=== PATIENT | female | born 1960 | race Caucasian/White ===

== ENCOUNTER → 2021-12-01 | Outpatient (CLI) | payer MEDICAID ==
--- NOTE | 2021-12-02 12:26 | MM ---
Reason for exam: screening (asymptomatic). Last mammogram was performed 1 year and 6 months ago. History: Patient is postmenopausal. Physical Findings: A clinical breast exam by your physician is recommended on an annual basis and results should be correlated with mammographic findings. MG Screening Mammo w CAD Bilateral CC and MLO view(s) were taken. Prior study comparison: June 04, 2020, mammogram, performed at [place]. June 04, 2019, mammogram, performed at [place]. The breast tissue is almost entirely fat. Finding: There are indeterminate grouped/clustered calcifications in the middle, central position of the right breast. Previous mammotome biopsy in the right breast. ASSESSMENT: Incomplete: need additional imaging evaluation, BI-RAD 0 RECOMMENDATION: Special view mammogram of the right breast. [facility] will attempt to contact patient to return for supplemental views.
== END | disposition home or self-care (01) ==
LOC: RADMAMWWP 16:37
PROVIDERS: ATTEND Family Medicine
DX: Z12.31 Encounter for screening mammogram for malignant neoplasm of breast (principal); Z78.0 Asymptomatic menopausal state
CPT/HCPCS: 77067

== ENCOUNTER → 2022-01-13 | Day surgery (SDC) | payer MEDICAID ==
[2022-01-13 07:27] VITALS: RESP 16
--- NOTE | 2022-01-13 08:41 | P.PCN ---
Date of Procedure: 01/13/22 Preoperative Diagnosis: Microcalcifications of concern right breast Postoperative Diagnosis: Same Procedure(s) Performed: Stereotactic core biopsy right breast Anesthesia: local Surgeon: Sadaf He Pathology: other (Breast tissue radiograph right breast shows microcalcifications of concern) Condition: stable Disposition: same day Indications for Procedure: Microcalcifications of concern right breast Operative Findings: Radiograph of specimen reveals microcalcifications of concern right breast Description of Procedure: The patient is a 61-year-old white female who on screening mammogram was noted to have microcalcifications of concern in her right breast. Additional views confirmed this and she was recommended to undergo a stereotactic core biopsy. Alternatives such as watchful waiting or resection in the operating room were noted but not recommended. Risks of the procedure were discussed with the patient. Risks include but are not limited to bleeding, infection, reaction to the anesthetic. If it was felt to be discordant pathologically than further tissue may be needed. The patient was taken to the stereotactic core biopsy room. She was positioned prone on the lo-rad table. A talent specialist film was obtained. The area of concern was identified. The area was targeted. The breast was prepped using Betadine. 20 mL of 1% lidocaine were used to anesthetize the area of concern. A 9-gauge vacuum-assisted core rotating biopsy needle was driven to the correct coordinates. A prefire film was obtained. The needle was noted to be in the correct location. The needle was fired. Post fire film was obtained. The needle was noted to be in the correct location. 13 core biopsy specimens were obtained. Radiograph of the specimen revealed the calcifications of concern to be present. A secure marked Top-Hat clip was placed. Radiograph revealed the clip to be in the correct location in the stereotactic core biopsy room. A 2-D view of this will be obtained postprocedure. The patient tolerated the procedure in stable condition. It is felt that the microcalcifications of concern have been adequately sampled. The specimen was sent to pathology. The patient will follow-up with Dr. Mancia in 1 week.
[2022-01-13 08:48] VITALS: BP 128/76; PULSE 52; TEMP 98.1
== END ==
LOC: RADMAMWWP 06:52
PROVIDERS: ATTEND Surgery
DX: D05.11 Intraductal carcinoma in situ of right breast (principal)
CPT/HCPCS: 88305; 88342; 88341; 19081; A4648; J2001

== ENCOUNTER → 2022-01-13 | Outpatient (CLI) | payer MEDICAID ==
[2022-01-13 07:39] VITALS: BP 119/80; PULSE 54; RESP 16; TEMP 98
--- NOTE | 2022-01-13 08:01 | P.GSHP ---
History of Present Illness H&P Date: 01/13/22 Chief Complaint: abnormal right breast mammogram Jason is a 61 year old female who [facility] right breast were requested. These were preformed on 12-20-21. She was noted to have microcalcification of concern in the inferior mid portion of the breast. She is seen in consultation for Dr. Ziegler. Any lumps masses or nodules of concern in either breast. She is not complaining of any nipple discharge or skin changes. She is not complaining of any pain in her breast. She has not had any recent trauma or infection in the breast. She had a stero biopsy of the right breast about 2004 which was benign. She has had no other procedures on her breast. Caffeine: One cup per day Nicotine: Negative Chocolate: Occasional Hormones: BCP: in her 20's for 8 years Family history: mother: lung cancer smoker father: lung cancer smoker Hormonal History: menarche: 14 , age at : 29, breat fed: no menopause: 52 BCP: 8 years Surgical history: appy left tube removed not ovary Medcial History: H Pylori: 2020 hypothyroid Social History: nicotine: none alcohol: none drugs: Marijuana daily secondary to PTSD, and arthritis - Constitutional Constitutional: Denies chills, Denies fever - EENT Eyes: denies blurred vision, denies pain Ears: deny: decreased hearing, tinnitus Ears, nose, mouth and throat: Denies headache, Denies sore throat - Breasts Breasts: bilateral: as per HPI - Cardiovascular Cardiovascular: Denies chest pain, Denies shortness of breath - Respiratory Respiratory: Denies cough, Denies 7 - Gastrointestinal Comment: H Pylori/ abdominal pain; nausea vomiting Gastrointestinal: Denies abdominal pain, Denies diarrhea, Denies nausea, Denies vomiting - Genitourinary (Female) Genitourinary: Denies dysuria, Denies hematuria - Menstruation Menstruation: Reports postmenopausal - Musculoskeletal Comment: arthritis - Integumentary Integumentary: Denies pruritus, Denies rash - Neurological Neurological: Denies numbness, Denies weakness - Psychiatric Comment: post traumatic stress disorder Psychiatric: Reports anxiety - Endocrine Endocrine: Denies fatigue, Denies weight change - Hematologic/Lymphatic Comment: none Past Medical History History of Any Multi-Drug Resistant Organisms: None Reported Smoking Status: Never smoker Medications and Allergies Home Medications Medication Instructions Recorded Confirmed Type Levothyroxine Sodium 112 mcg PO DAILY 01/07/22 01/13/22 History Ondansetron [Zofran] 4 mg PO Q12HR PRN 01/07/22 01/13/22 History Allergies Allergy/AdvReac Type Severity Reaction Status Date / Time tetanus and diphtheria AdvReac Swelling Verified 01/13/22 07:35 toxoids Surgical - Exam Vital Signs Temp Pulse Resp BP 98.0 F 54 L 16 119/80 01/13/22 07:35 01/13/22 07:35 01/13/22 07:35 01/13/22 07:35 BMI 30.5 - General no distress - Eyes normal ocular movement - ENT no hearing loss - Neck trachea midline - Respiratory normal respiratory effort - Cardiovascular Heart Sounds: normal: S1, S2 - Abdomen Abdomen: soft, non tender, no guarding, no rigid, no rebound - Integumentary normal turgor - Neurologic no disoriented, no combative - Musculoskeletal normal gait - Psychiatric oriented to time, oriented to person, oriented to place, speech is normal, memory intact Breast Exam: BRA: 38DD Section: Bilateral grade 3 ptosis Palpation: Right breast: Multi-positional exam fibrocystic changes no dominant masses or nodules of concern Right axilla: No adenopathy of concern Left breast: Multi-positional exam fibrocystic changes no dominant masses or nodules of concern Left axilla: No adenopathy of concern Results Mammogram reviewed with Dr. Cabrera from radiology; microcalcifications of concern right breast Assessment and Plan Assessment: Impression: Microcalcifications of concern right breast mid inferior portion Fibrocystic breast changes Plan: Stereotactic core biopsy right breast Risk and benefits of the procedure discussed with the patient. Risks include but are not limited to bleeding, infection, reaction to the anesthetic. If the biopsy is not concordant then further tissue may be necessary to be removed. The patient understands and wishes to proceed. Cc: Dr. Ziegler
== END ==
LOC: WWCWWP 06:49
PROVIDERS: ATTEND Surgery
DX: N60.11 Diffuse cystic mastopathy of right breast (principal); N60.12 Diffuse cystic mastopathy of left breast; R92.0 Mammographic microcalcification found on diagnostic imaging of breast; E03.9 Hypothyroidism, unspecified; M19.90 Unspecified osteoarthritis, unspecified site; F43.10 Post-traumatic stress disorder, unspecified; F41.9 Anxiety disorder, unspecified; Z88.7 Allergy status to serum and vaccine; Z79.890 Hormone replacement therapy

== ENCOUNTER → 2022-01-20 | Outpatient (CLI) | payer MEDICAID ==
[2022-01-20 11:48] VITALS: BP 125/84; PULSE 62; RESP 17; TEMP 98.7
--- NOTE | 2022-01-20 12:35 | P.PN ---
Subjective Progress Note Date: 01/20/22 Principal diagnosis: Ductal carcinoma in situ Jason is a 61-year-old white female status post her tactic core biopsy on . Pathology revealed ductal carcinoma in situ. There was medial migration of the clip approximately 2 cm. The patient tolerated the procedure without difficulty. The lesion is ER/HI positive grade 1. Objective - Vital Signs Vital signs: Vital Signs Temp 98.7 F 01/20/22 11:44 Pulse 62 01/20/22 11:44 Resp 17 01/20/22 11:44 BP 125/84 01/20/22 11:44 Pulse Ox 95 01/20/22 11:44 FiO2 Intake & Output 01/19/22 01/20/22 01/20/22 18:59 06:59 18:59 Weight 88.451 kg - Constitutional General appearance: Present: cooperative - EENT Eyes: Present: EOMI ENT: Present: hearing grossly normal - Respiratory Respiratory: bilateral: CTA - Cardiovascular Heart sounds: normal: S1, S2 - Integumentary Integumentary Comment(s): Biopsy site clean and dry Integumentary: Present: normal turgor - Musculoskeletal Musculoskeletal: Present: gait normal - Psychiatric Psychiatric: Present: A&O x's 3, appropriate affect, intact judgment & insight Assessment and Plan Assessment: Impression: Right breast core biopsy DCIS ER/HI positive less than 1 cm in size Plan: Presentation of case at tumor board Patient is not interested in any genetic testing Probable needle localization and lumpectomy/at this time I do not think she needs sentinel node biopsy to be performed I have had a long discussion with the patient in conjunction with Flakita Marques regarding her pathology results. The lesion is grade 1 DCIS ER/HI positive. Treatment options have been discussed with the patient. Treatment options range from mastectomy to lumpectomy plus or minus radiation. The patient at this time is not interested in a mastectomy. Risk of lumpectomy include but are not limited to bleeding, infection, reaction to the anesthetic. They have discussed the risk of positive margins, which could be the patient would need reexcision. Additionally if the lesion were found to be invasive she could need a sentinel node biopsy. The patient will be recommended to be evaluated by radiation oncology and medical oncology.
== END ==
LOC: WWCWWP 11:37
PROVIDERS: ATTEND Surgery
DX: D05.11 Intraductal carcinoma in situ of right breast (principal); Z17.0 Estrogen receptor positive status [ER+]; Z88.7 Allergy status to serum and vaccine

== ENCOUNTER 2022-02-09 08:41 | Day surgery (SDC) | payer MEDICAID ==
--- NOTE | 2022-01-28 13:25 | P.PN ---
Subjective Progress Note Date: 01/28/22 Principal diagnosis: Ductal carcinoma in situ right breast abnormal right breast mammogram Jason is a 61 year old female who [facility] right breast were requested. These were preformed on 12-20-21. She was noted to have microcalcification of concern in the inferior mid portion of the breast. She is seen in consultation for Dr. Ziegler. Any lumps masses or nodules of concern in either breast. She is not complaining of any nipple discharge or skin changes. She is not complaining of any pain in her breast. She has not had any recent trauma or infection in the breast. She had a stero biopsy of the right breast about 2004 which was benign. She has had no other procedures on her breast. The patient on underwent a stereotactic core biopsy of the area of concern in the right breast. Pathology revealed ductal carcinoma in situ. There was medial migration of the clip approximately 2 cm. The patient tolerated the procedure without difficulty. The lesion is ER/WV positive and gr neo 1. Caffeine: One cup per day Nicotine: Negative Chocolate: Occasional Hormones: BCP: in her 20's for 8 years Family history: mother: lung cancer smoker father: lung cancer smoker Hormonal History: menarche: 14 , age at : 29, breat fed: no menopause: 52 BCP: 8 years Surgical history: appy left tube removed not ovary Medcial History: H Pylori: 2020 hypothyroid Social History: nicotine: none alcohol: none drugs: Marijuana daily secondary to PTSD, and arthritis - Constitutional Constitutional: Denies chills, Denies fever - EENT Eyes: denies blurred vision, denies pain Ears: deny: decreased hearing, tinnitus Ears, nose, mouth and throat: Denies headache, Denies sore throat - Breasts Breasts: bilateral: as per HPI - Cardiovascular Cardiovascular: Denies chest pain, Denies shortness of breath - Respiratory Respiratory: Denies cough - Gastrointestinal Comment: H Pylori/ abdominal pain; nausea vomiting Gastrointestinal: Denies abdominal pain, Denies diarrhea, Denies nausea, Denies vomiting - Genitourinary (Female) Genitourinary: Denies dysuria, Denies hematuria - Menstruation Menstruation: Reports postmenopausal - Musculoskeletal Comment: arthritis - Integumentary Integumentary: Denies pruritus, Denies rash - Neurological Neurological: Denies numbness, Denies weakness - Psychiatric Comment: post traumatic stress disorder Psychiatric: Reports anxiety - Endocrine Endocrine: Denies fatigue, Denies weight change - Hematologic/Lymphatic Comment: none Objective - Constitutional General appearance: Present: cooperative - EENT Eyes: Present: EOMI ENT: Present: hearing grossly normal - Respiratory Respiratory: bilateral: CTA - Cardiovascular Heart sounds: normal: S1, S2 - Integumentary Integumentary: Present: normal turgor - Musculoskeletal Musculoskeletal: Present: gait normal - Psychiatric Psychiatric: Present: A&O x's 3, appropriate affect, intact judgment & insight - Additional findings Additional findings: Breast Exam: BRA: 38DD Section: Bilateral grade 3 ptosis Palpation: Right breast: Multi-positional exam fibrocystic changes no dominant masses or nodules of concern; biopsy site clean and dry no evidence of any infection or hematoma Right axilla: No adenopathy of concern Left breast: Multi-positional exam fibrocystic changes no dominant masses or nodules of concern Left axilla: No adenopathy of concern Results Mammogram reviewed with Dr. Cabrera from radiology; microcalcifications of concern right breast Assessment and Plan Assessment: Results Mammogram reviewed with Dr. Cabrera from radiology; microcalcifications of concern right breast stereo biopsy performed clip appears to have migrated approximately 2 cm Assessment and Plan Assessment: Impression: Microcalcifications of concern right breast mid inferior portion; biopsy positive for ductal carcinoma in situ Plan: Presentation of case at tumor board Patient is not interested in any genetic testing Needle localization right breast lumpectomy possible optical plastic tissue transfer, no sentinel node biopsy Long discussion with the patient in conjunction with Flakita Marques regarding her pathology results. The lesion is grade 1 DCIS ER/WV positive. Treatment options have been discussed with the patient. Treatment options range from mastectomy plus or minus reconstruction to lumpectomy plus or minus radiation. The patient at this time is not interested in a mastectomy. Risks of lumpectomy include but are not limited to bleeding, infection, reaction to the anesthetic. We have discussed the risk of positive margins which could necessitate further excision. Additionally of the lesion were to be found invasive its possible that a sentinel node biopsy could be recommended. The patient is understanding these things and wishes to proceed. She is recommended to be evaluated by radiation and medical oncology. Risk and benefits of the procedure discussed with the patient. Risks include but are not limited to bleeding, infection, reaction to the anesthetic. If the biopsy is not concordant then further tissue may be necessary to be removed. The patient understands and wishes to proceed. Cc: Dr. Ziegler Additional CC's: Tiffanie Ziegler
[~2022-02-09 08:41] MED LIST: ALPRAZolam 0.5 MG TAB PO PRN; DEXAMETHASONE SOD PHOSPHATE 4 MG/ML 1 ML VIAL IV ONE; HEPARIN SODIUM,PORCINE/PF 5,000 UNIT/0.5 ML SYRINGE SQ PRN; HYDROmorphone 0.5 MG/0.5 ML SYRINGE IVP PRN; LACTATED RINGERS 1,000 ML IV SCH; ONDANSETRON 4 MG/2 ML VIAL IVP ONE; Pre Op ABX Message 1 EACH MISC MISCELLANE ONE
[2022-02-09 10:33] VITALS: RESP 16
[2022-02-09] MEDS ORDERED: LIDOCAINE 1% INJ 10MG/ML (20 ML MDV) SQ ONE (10:46)
--- NOTE | 2022-02-09 12:40 | P.NAPBC ---
NAPBC Queries - NAPBC Queries Was patient's case review presented at [facility] tumor board? If no, comment.: Yes Was patient's pathology reviewed at [facility]? If no, comment.: Yes Was breast conservation surgery offered? If no, comment.: Yes Was sentinel node biopsy offered? If no, comment.: No Was diagnosis confirmed by percutaneous core biopsy? If no, comment.: Yes Is patient mastectomy patient?: No Was a preop referral to reconstructive surgeon offered?: No Clinical Stage: stage 0
[2022-02-09] MEDS ORDERED: ePHEDrine 50 MG/ML 1 ML VIAL ONE (13:11)
[2022-02-09] MEDS ORDERED: ceFAZolin 1,000 MG VIAL ONE (13:11)
[2022-02-09] MEDS ORDERED: SUCCINYLCHOLINE CHLORIDE VIAL 200 MG/10 ML VIAL IV ONE (13:11)
[2022-02-09] MEDS ORDERED: PROPOFOL 10 MG/ML 20 ML VIAL IV ONE (13:11)
[2022-02-09] MEDS ORDERED: fentaNYL (PF) 50 MCG/ML 2 ML AMP ONE (13:11)
[2022-02-09] MEDS ORDERED: LIDOCAINE 2% INJ 20 MG/ML (2 ML VIAL) ONE (13:11)
[2022-02-09] MEDS ORDERED: MIDAZOLAM 2 MG/2 ML VIAL ONE (13:11)
[2022-02-09] MEDS ORDERED: LIDOCAINE 1% INJ 10MG/ML (30 ML VIAL-PF) SQ ONE (13:16)
--- NOTE | 2022-02-09 14:13 | P.OP ---
Date of Procedure: 02/09/22 Preoperative Diagnosis: Ductal carcinoma in situ right breast Postoperative Diagnosis: Same Procedure(s) Performed: needle localization excisional lumpectomy right breast Anesthesia: BRITTANYA Surgeon: Sadaf He Estimated Blood Loss (ml): 5 IV fluids (ml): 500 Pathology: other (breast tissue) Condition: stable Disposition: same day Indications for Procedure: DCIS right breast Operative Findings: Fibrofatty breast tissue Description of Procedure: Jason is a 61-year-old white female who was diagnosed with ductal carcinoma in situ of the right breast and a stereotactic core biopsy. Following needle localization of area of concern in the right breast she was brought to the operative suite. Following induction of anesthesia the right breast was prepped and draped in a sterile fashion. An incision was made and carried down to the hook of the needle. Surrounding tissue was excised. Specimen was painted for orientation. Radiograph of the specimen revealed the area of concern had been removed. Should be noted that the clip had migrated slightly from the area of the needle tip had gone to the area of prior biopsy. The wound was evaluated. Titanium clips were placed after assured that hemostasis was attained. The deep tissues were closed using 3-0 Vicryl suture. The subcutaneous tissues closed using 3-0 Vicryl suture. The skin was closed using 4-0 Monocryl. Steri-Strips were applied. The patient tolerated procedure in stable condition. All instrument and sponge counts were correct at the end of the case.
--- NOTE | 2022-02-09 14:15 | P.DS ---
Providers Attending physician: Sadaf He Primary care physician: Tiffanie Ziegler MD Plan - Discharge Summary Discharge Rx Participant: No New Discharge Prescriptions: No Action Ondansetron [Zofran] 4 mg PO Q12HR PRN PRN Reason: Mild Nausea And/Or Anxiety Levothyroxine Sodium 112 mcg PO QAM Discharge Medication List Levothyroxine Sodium 112 mcg PO QAM 01/07/22 [History] Ondansetron [Zofran] 4 mg PO Q12HR PRN 01/07/22 [History] Follow up Appointment(s)/Referral(s): Sadaf He MD [STAFF PHYSICIAN] - 1 Week Activity/Diet/Wound Care/Special Instructions: wear bra at all times may shower after [address] if taking narcotic pain medication, or for 24 hours from discharge from the hospital Discharge Disposition: HOME SELF-CARE
[2022-02-09 14:42] VITALS: TEMP 97.4
[2022-02-09] MEDS ORDERED: ONDANSETRON 4 MG/2 ML VIAL ONE (15:51)
[2022-02-09] MEDS ORDERED: KETOROLAC 15 MG/ML 1 ML VIAL ONE (15:51)
[2022-02-09] MEDS ORDERED: ONDANSETRON 4 MG/2 ML VIAL IVP ONE (15:55)
[2022-02-09] MEDS ORDERED: KETOROLAC 15 MG/ML 1 ML VIAL IVP ONE (15:55)
[2022-02-09] MEDS ORDERED: HYDROcodone/APAP 5-325MG 1 EACH TAB PO ONE (16:06)
[2022-02-09] MEDS ORDERED: HYDROcodone/APAP 5-325MG 1 EACH TAB ONE (16:07)
[2022-02-09 16:22] VITALS: BP 138/82; PULSE 52
--- NOTE | 2022-02-11 13:31 | P.PN ---
Progress Note - Text Progress Note Date: 02/11/22 Patient has called requesting additional [place]. I have called her back without any answer. Have requested that she return phone call to us. If she has significant questions or pain she go to the emergency room.
== END 2022-02-09 16:45 | disposition home or self-care (01) ==
LOC: OR 08:41
PROVIDERS: ATTEND Surgery
DX: D05.11 Intraductal carcinoma in situ of right breast (principal); Z17.0 Estrogen receptor positive status [ER+]; Z80.1 Family history of malignant neoplasm of trachea, bronchus and lung; E03.9 Hypothyroidism, unspecified; F43.10 Post-traumatic stress disorder, unspecified; M19.90 Unspecified osteoarthritis, unspecified site; F41.9 Anxiety disorder, unspecified; N95.9 Unspecified menopausal and perimenopausal disorder; K21.9 Gastro-esophageal reflux disease without esophagitis; Z91.041 Radiographic dye allergy status; Z79.890 Hormone replacement therapy
CPT/HCPCS: 88307; 76098; 19281; C1819; J2250; J0330; J1100; J2405; J0690; J2001 ×3; J3010; J1885; J2704; J1170

== ENCOUNTER → 2022-02-18 | Outpatient (CLI) | payer MEDICAID ==
[2022-02-18 15:42] VITALS: BP 148/85; PULSE 55; RESP 17; TEMP 98.9
--- NOTE | 2022-02-18 16:05 | P.PN ---
Progress Note - Text Progress Note Date: 02/18/22 Jason is a 61 year old white female status post lumpectomy on 02-09-22. Her pathology was DCIS negative margins. Size 1mm. Physical examination: Lungs: Wheezing right lung base Heart: Regular rate and rhythm Incision: Clean and dry Impression: DCIS completely excised Plan: Follow with medical oncology following radiation oncology follow here in 4 months Follow sooner any questions or concerns CC: Dr. Ziegler
== END ==
LOC: WWCWWP 15:12
PROVIDERS: ATTEND Surgery
DX: Z48.817 Encounter for surgical aftercare following surgery on the skin and subcutaneous tissue (principal); D05.11 Intraductal carcinoma in situ of right breast; Z88.7 Allergy status to serum and vaccine

== ENCOUNTER → 2022-03-16 | Outpatient (CLI) | payer MEDICAID ==
--- NOTE | 2022-03-16 18:58 | BD ---
EXAMINATION TYPE: Axial Bone Density DATE OF EXAM: 03/16/2022 COMPARISON: NONE CLINICAL HISTORY: 61 years year old Female. ICD-10 CODE: D05.10 INTRADUCTAL CARCINOMA INSUIT OF UNSP ECIFIED Height: 64.5 IN Weight: 204 LBS RISK FACTORS HISTORY OF: Active: YES Diet low in dairy products/other sources of calcium: YES Postmenopausal woman: AGE 52 MEDICATIONS: Thyroid Medications: YES Which medication: Levothyroxine How Lon + YEARS Additional Medications: TAMOXIFEN, CALCIUM, VIT D, LEVOTHYROXINE, ZOFRAN, EXAM MEASUREMENTS: Bone mineral densitometry was performed using the [employer] System. Bone mineral density as measured about the Lumbar spine is: ----- L1-L4(G/cm2): 1.177 T Score Values are as follows: ----- L1: -0.2 ----- L2: -0.3 ----- L3: -0.2 ----- L4: 0.5 ----- L1-L4: 0.0 Bone mineral density BASELINE Bone mineral density about the R hip (g/cm2): 0.699 Bone mineral density about the L hip (g/cm2): 0.786 T Score values are as follows: -----R Neck: -2.4 -----L Neck: -1.8 -----R Total: -2.4 -----L Total: -1.9 Bone mineral density BASELINE FRAX%s: The graph provided illustrates a 10.5 chance for a major osteoporotic fx and a 1.8 chance for the hips probability for fx in 10 years time. IMPRESSION: Osteopenia (T Score between -2.5 and -1). There is slightly increased risk of fracture and the patient may be considered for treatment. Re-Screen 2-5 years. NOTE: T-SCORE=SD OF THE YOUNG ADULT MEAN.
== END | disposition home or self-care (01) ==
LOC: RADBDWWP 07:52
PROVIDERS: ATTEND Internal Medicine Hematology & Oncology
DX: D05.10 Intraductal carcinoma in situ of unspecified breast (principal); M85.89 Other specified disorders of bone density and structure, multiple sites
CPT/HCPCS: 77080

== ENCOUNTER → 2022-07-21 | Outpatient (CLI) | payer MEDICAID ==
--- NOTE | 2022-07-21 09:38 | US ---
EXAMINATION TYPE: US st tissue neck DATE OF EXAM: 07/21/2022 COMPARISON: None CLINICAL HISTORY: 62-year-old female R59.0 LOCALIZED ENLARGED LYMPH NODES. Lump right side neck. Technique: Targeted ultrasound examination along the right side of the neck corresponding to the palp able site. FINDINGS: Sonography notes: Scanned area of concern; no abnormalities seen. IMPRESSION: No discrete sonographic abnormality along the right side of the neck corresponding to the palpable si te. If any enlarging palpable area or suspicious clinical features develop, the area can be rescanned or further CT assessment can be considered
== END | disposition home or self-care (01) ==
LOC: RADUSWWP 08:34
PROVIDERS: ATTEND Family Medicine
DX: R59.0 Localized enlarged lymph nodes (principal)
CPT/HCPCS: 76536

== ENCOUNTER → 2022-08-04 | Outpatient (CLI) | payer BC ==
--- NOTE | 2022-08-08 15:20 | MM ---
Reason for Exam: Follow-up at short interval from prior study. Last screening mammogram was performed 8 month(s) ago. Patient History: Menarche at age 14. First Full-Term at age 29. Postmenopausal. Breast cancer, right, age 61. Breast cancer, right, age 61. 02/09/2022, Lumpectomy on the Right side. 02/09/2022, Malignant MG pre op needle loc RT on the right side. 01/13/2022, Malignant MG stereo VAD BX RT on the right side. Prior Study Comparison: 06/04/2020 Screening Mammogram, [place]. 12/01/2021 Bilateral Screening Mammogram, [facility]. 12/20/2021 Right MG work up mamm w CAD RT, [facility]. Tissue Density: Right: There are scattered fibroglandular densities. Findings: Analyzed By CAD. Interval postsurgical changes right breast. Microclip lower quadrant from prior biopsy. Chronic nodularity laterally at a middle depth. Otherwise, no significant change. Patient due for annual exam in 4 months. Overall Assessment: Probably benign, BI-RAD 3 Management: Diagnostic Mammogram of both breasts in 4 months. 1. Patient should continue monthly self breast exams. 2. A clinical breast exam by your physician is recommended on an annual basis. 3. This exam should not preclude additional follow-up of suspicious palpable abnormalities. Results were given to the patient verbally at the time of exam. Electronically signed and approved by: Kinza Cabrera M.D. Radiologist
== END | disposition home or self-care (01) ==
LOC: RADMAMWWP 09:34
PROVIDERS: ATTEND Internal Medicine
DX: C50.911 Malignant neoplasm of unspecified site of right female breast (principal); Z78.0 Asymptomatic menopausal state
CPT/HCPCS: 77065

== ENCOUNTER → 2022-11-04 | Outpatient (CLI) | payer BC ==
[2022-11-04 11:38] LABS: Chol/HDL Ratio 3.98 Ratio; LDL Cholesterol,Calculated 114.7 mg/dL (0.0-131.0); Potassium 4.5 mmol/L (3.5-5.5); VLDL Calculation 18.64 mg/dL (5.00-40.00)
== END | disposition home or self-care (01) ==
LOC: LABWHC1 07:11
PROVIDERS: ATTEND Family Medicine
DX: Z00.00 Encounter for general adult medical examination without abnormal findings (principal); E87.5 Hyperkalemia; E02 Subclinical iodine-deficiency hypothyroidism; R73.9 Hyperglycemia, unspecified
CPT/HCPCS: 36415; 80061; 83036; 84132; 84439; 84443

== ENCOUNTER → 2022-12-07 | Outpatient (CLI) | payer BC ==
--- NOTE | 2022-12-16 09:10 | MM ---
Reason for Exam: Follow-up at short interval from prior study. Last screening mammogram was performed 12 month(s) ago. Patient History: Menarche at age 14. First Full-Term at age 29. Postmenopausal. Breast cancer, right, age 61. Breast cancer, right, age 61. 02/09/2022, Lumpectomy on the Right side. 02/09/2022, Malignant MG pre op needle loc RT on the right side. 01/13/2022, Malignant MG stereo VAD BX RT on the right side. Prior Study Comparison: 06/04/2019 Bilateral Screening Mammogram, Unknown. 06/04/2020 Screening Mammogram, [place]. 12/01/2021 Bilateral Screening Mammogram, [facility]. 12/20/2021 Right MG work up mamm w CAD RT, [facility]. 08/04/2022 Right MG diagnostic mammo RT w CAD, [facility]. Tissue Density: The breast tissue is almost entirely fat. Findings: Analyzed By CAD. Decreased appearance of postsurgical changes within the right breast. Microclips lower quadrant from prior biopsy. Chronic nodularity within the right middle breast. No new suspicious mass or group of calcifications within either breast. Overall Assessment: Benign, BI-RAD 2 Management: Diagnostic Mammogram of both breasts in 1 year. A clinical breast exam by your physician is recommended on an annual basis and results should be correlated with mammographic findings. This exam should not preclude additional follow-up of suspicious palpable abnormalities. Results were given to the patient verbally at the time of exam. Electronically signed and approved by: Kyrie Rubio D.O.
== END | disposition home or self-care (01) ==
LOC: RADMAMWWP 08:47
PROVIDERS: ATTEND Family Medicine
DX: C50.111 Malignant neoplasm of central portion of right female breast (principal); Z78.0 Asymptomatic menopausal state
CPT/HCPCS: 77062; 77066

== ENCOUNTER → 2023-12-15 | Outpatient (CLI) | payer BC ==
--- NOTE | 2023-12-15 09:36 | MM ---
Reason for Exam: Follow-up at short interval from prior study. Last screening mammogram was performed 12 month(s) ago. Patient History: Menarche at age 14. First Full-Term at age 29. Postmenopausal. Breast cancer, right, age 61. Breast cancer, right, age 61. 02/09/2022, Lumpectomy on the Right side. 02/09/2022, Malignant MG pre op needle loc RT on the right side. 01/13/2022, Malignant MG stereo VAD BX RT on the right side. Prior Study Comparison: 12/20/2021 Right MG work up mamm w CAD RT, [facility]. 08/04/2022 Right MG diagnostic mammo RT w CAD, [facility]. 12/07/2022 Bilateral MG 3D diag mammo w/cad ANKIT, [facility]. Tissue Density: The breasts are almost entirely fatty. Findings: Analyzed By CAD. 2 small focal asymmetries in the right breast. These seem to have been present when comparing against areas prior studies. Short interval surveillance follow-up. Microclip medial right breast from prior biopsy. Post surgical change right breast noted. Short interval follow-up to assess for any evolving post treatment change. Otherwise, no significant change. Overall Assessment: Probably benign, BI-RAD 3 Management: Diagnostic Mammogram of the right breast in 6 months. . Results were given to the patient verbally at the time of exam. Patient should continue monthly self-breast exams. A clinical breast exam by your physician is recommended on an annual basis. This exam should not preclude additional follow-up of suspicious palpable abnormalities. Electronically signed and approved by: Kinza Cabrera M.D. Radiologist
== END | disposition home or self-care (01) ==
LOC: RADMAMWWP 08:58
PROVIDERS: ATTEND Family Medicine
DX: D05.11 Intraductal carcinoma in situ of right breast (principal); Z78.0 Asymptomatic menopausal state
CPT/HCPCS: 77066

== ENCOUNTER → 2024-06-18 | Outpatient (CLI) | payer BC ==
--- NOTE | 2024-06-18 09:25 | MM ---
Reason for Exam: Follow-up at short interval from prior study. Last screening mammogram was performed 6 month(s) ago. Patient History: Menarche at age 14. First Full-Term at age 29. Postmenopausal. Breast cancer, right, age 61. Breast cancer, right, age 61. 02/09/2022, Lumpectomy on the Right side. 02/09/2022, Malignant MG pre op needle loc RT on the right side. 01/13/2022, Malignant MG stereo VAD BX RT on the right side. Prior Study Comparison: 08/04/2022 Right MG diagnostic mammo RT w CAD, [facility]. 12/07/2022 Bilateral MG 3D diag mammo w/cad ANKIT, [facility]. 12/15/2023 Bilateral MG diagnostic mammo w CAD ANKIT, [facility]. Tissue Density: Right: There are scattered areas of fibroglandular density. Findings: Analyzed By CAD. Tiny areas of nodular density remain stable dating back to 2019. No new masses seen. No suspicious microcalcifications. Lumpectomy changes identified. Overall Assessment: Benign, BI-RAD 2 Management: Diagnostic Mammogram of both breasts in 6 months. . Results were given to the patient verbally at the time of exam. Patient should continue monthly self-breast exams. A clinical breast exam by your physician is recommended on an annual basis. This exam should not preclude additional follow-up of suspicious palpable abnormalities. Note on Aixa scores and lifetime risk: 1. A Aixa score greater than 3% is considered moderate risk. If this is the case, consider specialist referral to assess eligibility for a risk reducing agent. 2. If overall lifetime risk for the development of breast cancer is 20% or higher, the patient may qualify for future screening with alternating mammogram and breast MRI. [facility], , 06/18/2024 9:22 AM. Electronically signed and approved by: Willy Lewis M.D. Radiologis
== END | disposition home or self-care (01) ==
LOC: RADMAMWWP 08:52
PROVIDERS: ATTEND Family Medicine
DX: R92.311 Mammographic fatty tissue density, right breast (principal); Z78.0 Asymptomatic menopausal state; Z85.3 Personal history of malignant neoplasm of breast; R92.321 Mammographic fibroglandular density, right breast
CPT/HCPCS: 77061; 77065